=== PATIENT | female | born 1990 | race Caucasian/White ===

== ENCOUNTER 2017-03-03 12:22 | Emergency (ER) | payer MEDICAID ==
[~2017-03-03] VITALS: Ht 157.5 cm; Wt 79.0 kg
[2017-03-03 12:29] VITALS: Ht 157.5 cm; Wt 79.0 kg
[2017-03-03] MEDS ORDERED: ACETAMINOPHEN 500 MG TAB PO STA (13:47)
[2017-03-03 14:11] LABS: ADD UMIC YES; UR ASCORBIC ACID NEGATIVE (NEGATIVE); UR BILIRUBIN (Dip) NEGATIVE (NEGATIVE); UR BLOOD (Dip) 2+ mg/dL (NEGATIVE); UR CLARITY CLEAR (CLEAR); UR COLOR STRAW (YELLOW); UR GLUCOSE (Dip) NEGATIVE (NEGATIVE); UR KETONES (Dip) NEGATIVE (NEGATIVE); UR LEUKOCYTE ESTERASE (Dip) TRACE Leu/ul (NEGATIVE); UR NITRITE (Dip) NEGATIVE (NEGATIVE); UR RBC 1 /HPF (0-5); UR SPECIFIC GRAVITY (Dip) 1.002 (1.003-1.030); UR TOTAL PROTEIN (Dip) NEGATIVE (NEGATIVE); UR UROBILINOGEN (Dip) NEGATIVE (NEGATIVE)
--- NOTE | 2017-03-03 14:22 | RADRPT ---
PROCEDURE: OB Ultrasound. CLINICAL INDICATION: Positive test. Vaginal bleeding for 1 week. TECHNIQUE: Ultrasound of the pelvis was performed with transabdominal and transvaginal sonography in the axial and sagittal planes. COMPARISON: No prior study is available for comparison. FINDINGS: There is a single intrauterine gestational sac. pole and yolk sac are not visualized. Mean sac diameter is 0.22 cm. Menstrual age by ultrasound dates is 4 weeks 5 days. This indicates an expected date of delivery of 11/05/2017. The right ovary appears normal measuring 3.3 x 2.9 x 3.7 cm. The left ovary appears normal measuring 4.2 x 3.0 x 3.5 cm. Color Doppler and pulsed Doppler sonography demonstrate normal flow to the ovaries. There is no other pelvic mass or free fluid. IMPRESSION: 1. Single small intrauterine gestational sac measuring 0.22 cm. It is too early to visualize pole or yolk sac. Follow-up ultrasound in 14 days is advised. 2. Otherwise unremarkable study. RPTAT: QQ .Colby Lechuga MD, Date Time Electronically viewed and signed by .Colby Lechuga MD, on 03/03/2017 14:22 .R/
[2017-03-03 14:39] LABS: ADD SCAN DIFF NO
--- NOTE | 2017-03-03 14:46 | ERD ---
ER Documentation Chief Complaint Date/Time DATE: 03/03/17 TIME: 14:45 Chief Complaint 4 WEEKS WITH BLEEDING SINCE YESTERDAY HPI This is a 26-year-old female who presents to the emergency department today complaining of lower abdominal cramping and back pain for the past couple of days. She states that she took a test on Saturday that was positive. States that she started having some bleeding and spotting couple of days ago. She has not taken any medication for the pain. She does not have an [facility] clinic. States her last menstrual period was February 05. States she has some mild dysuria. Denies any nausea vomiting, fevers or chills ROS All systems reviewed and are negative except as per history of present illness. Medications Home Meds Active Scripts Nitrofurantoin Monohyd Macrocr* (Macrobid*) 100 Mg Capsr, 100 MG PO BID for 7 Days, CAP Prov:ALLAN VELAZQUEZ PA-C 03/03/17 Acetaminophen* (Tylophen*) 500 Mg Capsule, 1 CAP PO Q6H Y for PAIN AND OR ELEVATED TEMP, #30 CAP Prov:ALLAN VELAZQUEZ PA-C 03/03/17 Allergies Allergies: Coded Allergies: No Known Drug Allergy (Verified Allergy, Unknown, 12/14/09) PMhx/Soc History of Surgery: No Anesthesia Reaction: No Hx Neurological Disorder: No Hx Respiratory Disorders: No Hx Cardiac Disorders: No Hx Psychiatric Problems: No Hx Miscellaneous Medical Probl: No Hx Alcohol Use: No Hx Substance Use: No Hx Tobacco Use: No Smoking Status: Never smoker Physical Exam Vitals Vital Signs Date Time Temp Pulse Resp B/P Pulse Ox O2 Delivery O2 Flow Rate FiO2 03/03/17 16:22 94 16 124/80 03/03/17 12:29 98.1 110 18 133/82 99 Physical Exam Const: No acute distress Head: Atraumatic Eyes: Normal Conjunctiva ENT: Normal External Ears, Nose and Mouth. Neck: Full range of motion..~ No meningismus. Resp: Clear to auscultation bilaterally Cardio: Regular rate and rhythm, no murmurs Abd: Soft, suprapubic tenderness non distended. Normal bowel sounds. No right lower quadrant pain. No tenderness McBurney's. Skin: No petechiae or rashes Back: No midline tenderness. Bilateral paraspinal tenderness. No CVA tenderness. Ext: No cyanosis, or edema Neur: Awake and alert Psych: Normal Mood and Affect Result Diagram: 03/03/17 1418 Results 24 hrs Laboratory Tests Test 03/03/17 13:00 03/03/17 14:18 Urine Color STRAW Urine Clarity CLEAR Urine pH 7.0 Urine Specific [place] 1.002 Urine Ketones NEGATIVEmg/dL Urine Nitrite NEGATIVEmg/dL Urine Bilirubin NEGATIVEmg/dL Urine Urobilinogen NEGATIVEmg/dL Urine Leukocyte Esterase TRACELeu/ul Urine Microscopic RBC 1/HPF Urine Microscopic WBC 0/HPF Urine Hemoglobin 2+mg/dL Urine Glucose NEGATIVEmg/dL Urine Total Protein NEGATIVEmg/dl White Blood Count 8.810^3/ul Red Blood Count 4.5610^6/ul Hemoglobin 14.4g/dl Hematocrit 41.7% Mean Corpuscular Volume 91.4fl Mean Corpuscular Hemoglobin 31.6pg Mean Corpuscular Hemoglobin Concent 34.5g/dl Red Cell Distribution Width 12.6% Platelet Count 55421^3/UL Mean Platelet Volume 9.2fl Neutrophils % 69.6% Lymphocytes % 23.3% Monocytes % 6.1% Eosinophils % 0.5% Basophils % 0.3% Nucleated Red Blood Cells % 0.0/100WBC Neutrophils # 6.110^3/ul Lymphocytes # 2.110^3/ul Monocytes # 0.510^3/ul Eosinophils # 0.010^3/ul Basophils # 0.010^3/ul Nucleated Red Blood Cells # 0.010^3/ul Beta HCG, Quantitative 1706.2mIU/ml Current Medications Medications (Trade) Dose Ordered Sig/Gunner Route PRN Reason Start Time Stop Time Status Last Admin Dose Admin Acetaminophen (Tylenol Tab) 500 mg ONCE STAT PO 03/03/17 13:47 03/03/17 13:48 DC 03/03/17 13:53 DIAGNOSTIC IMAGING REPORT Patient: DEMETRIO DIAS : 1990 Age: 26 Sex: F MR #: [id number] DOS: 03/03/17 1347 Ordering MD: ALLAN VELAZQUEZ PA-C Location: [facility] Room/Bed: PROCEDURE: OB Ultrasound. CLINICAL INDICATION: Positive test. Vaginal bleeding for 1 week. TECHNIQUE: Ultrasound of the pelvis was performed with transabdominal and transvaginal sonography in the axial and sagittal planes. COMPARISON: No prior study is available for comparison. FINDINGS: There is a single intrauterine gestational sac. pole and yolk sac are not visualized. Mean sac diameter is 0.22 cm. Menstrual age by ultrasound dates is 4 weeks 5 days. This indicates an expected date of delivery of 11/05/2017. The right ovary appears normal measuring 3.3 x 2.9 x 3.7 cm. The left ovary appears normal measuring 4.2 x 3.0 x 3.5 cm. Color Doppler and pulsed Doppler sonography demonstrate normal flow to the ovaries. There is no other pelvic mass or free fluid. IMPRESSION: 1. Single small intrauterine gestational sac measuring 0.22 cm. It is too early to visualize pole or yolk sac. Follow-up ultrasound in 14 days is advised. 2. Otherwise unremarkable study. RPTAT: QQ .Colby Lechuga MD, MD Date Time Electronically viewed and signed by .Colby Lechuga MD, on 03/03/2017 14:22 .R/ CC: ALLAN VELAZQUEZ PA-C Procedures/[facility] This is a 26-year-old female who presents to the emergency department today complaining of vaginal bleeding for the past couple of days. Patient states she is approximately 3-4 weeks . Given this I did obtain a complete OB workup. Laboratory work shows no elevated white blood cell count. She is not anemic. Platelets are within normal limits. UA shows trace leukocyte esterase Beta quant hCG 1706.2 Rh status 0+ Ultrasound shows a single small intrauterine gestational sac measuring 0.22 cm. Is too early to visualize pole or yolk sac. A follow-up ultrasound in 14 days was recommended. There is no other pelvic mass or free fluid. There is an estimated delivery date of 11/05/2017. There is normal flow to both ovaries. Patient symptoms at this time is consistent with vaginal bleeding in early . Other differentials to consider early normal versus early failed versus placenta previa versus subchorionic hemorrhage. Given patient had complaints of dysuria and her trace leukocyte Estrace and will treat her with Macrobid for possible urinary tract infection. Patient given Tylenol here in the emergency department. She will be given a prescription for home. Patient is afebrile and otherwise well-appearing. I have low suspicion for ectopic , tubo ovarian abscess, ovarian torsion. I have explained the results to the patient. I have explained that the may continue to have vaginal bleeding peer. I have explained to the patient that they need to follow-up in 48 hours for a repeat beta quant. At this time the patient is stable for discharge and outpatient management. Patient should follow up with their PCP in the next 1-2 days. They may return to the emergency department sooner for any persistent or worsening of symptoms. Patient understood and agreed with the plan. Departure Diagnosis: Primary Impression: Vaginal bleeding in patient at less than 20 weeks gestation Condition: ALLAN Tipton PA-C Mar 03, 2017 14:46
[2017-03-03 14:57] LABS: BASOPHILS % 0.3 % (0.0-2.0); EOSINOPHILS % 0.5 % (0.0-7.0); HEMATOCRIT 41.7 % (37.0-47.0); HEMOGLOBIN 14.4 g/dl (12.0-16.0); LYMPHOCYTES # 2.1 10^3/ul (0.8-2.9); LYMPHOCYTES % 23.3 % (15.0-51.0); MEAN CORPUSCULAR HEMOGLOBIN 31.6 pg (29.0-33.0); MEAN CORPUSCULAR HGB CONC 34.5 g/dl (32.0-37.0); MEAN CORPUSCULAR VOLUME 91.4 fl (82.0-101.0); MEAN PLATELET VOLUME 9.2 fl (7.4-10.4); MONOCYTE # 0.5 10^3/ul (0.3-0.9); MONOCYTES % 6.1 % (0.0-11.0); NEUTROPHIL # 6.1 10^3/ul (1.6-7.5); NEUTROPHILS % 69.6 % (39.0-77.0); PLATELET COUNT 347 10^3/UL (140-415); RED BLOOD COUNT 4.56 10^6/ul (4.20-5.40); RED CELL DISTRIBUTION WIDTH 12.6 % (11.5-14.5); WHITE BLOOD COUNT 8.8 10^3/ul (4.8-10.8)
[2017-03-03] MEDS ORDERED: ACET500C5 PO (16:14)
[2017-03-03] MEDS ORDERED: NITR-58 PO (16:14)
[2017-03-03 16:22] VITALS: BP 124/80; PULSE 94; RESP 16
== END 2017-03-03 16:23 | disposition home or self-care (01) ==
LOC: FTE 12:22
DX: O20.9 Hemorrhage in early pregnancy, unspecified (principal); Z3A.01 Less than 8 weeks gestation of pregnancy
CPT/HCPCS: 36415; 76801; 76817; 81001; 84702; 85025; 86900; 86901; Z7502; Z7610

== ENCOUNTER 2017-03-05 14:13 | Emergency (ER) | payer MEDICAID ==
[~2017-03-05] VITALS: Ht 152.4 cm; Wt 70.4 kg
[~2017-03-05 14:13] MED LIST: ACET500C5 PO; NITR-58 PO
[2017-03-05 14:15] VITALS: Ht 152.4 cm; Wt 70.4 kg
[2017-03-05 15:34] LABS: ADD SCAN DIFF NO
[2017-03-05 15:35] LABS: BASOPHILS % 0.3 % (0.0-2.0); EOSINOPHILS # 0.1 10^3/ul (0.0-0.5); EOSINOPHILS % 0.6 % (0.0-7.0); HEMATOCRIT 38.5 % (37.0-47.0); HEMOGLOBIN 13.6 g/dl (12.0-16.0); LYMPHOCYTES # 2.7 10^3/ul (0.8-2.9); LYMPHOCYTES % 28.6 % (15.0-51.0); MEAN CORPUSCULAR HEMOGLOBIN 32.2 pg (29.0-33.0); MEAN CORPUSCULAR HGB CONC 35.3 g/dl (32.0-37.0); MEAN PLATELET VOLUME 9.3 fl (7.4-10.4); MONOCYTE # 0.6 10^3/ul (0.3-0.9); MONOCYTES % 6.7 % (0.0-11.0); NEUTROPHIL # 6.1 10^3/ul (1.6-7.5); NEUTROPHILS % 63.4 % (39.0-77.0); PLATELET COUNT 323 10^3/UL (140-415); RED BLOOD COUNT 4.23 10^6/ul (4.20-5.40); RED CELL DISTRIBUTION WIDTH 12.6 % (11.5-14.5); WHITE BLOOD COUNT 9.6 10^3/ul (4.8-10.8)
--- NOTE | 2017-03-05 15:46 | ERD ---
ER Documentation Chief Complaint Date/Time DATE: 03/05/17 TIME: 15:44 Chief Complaint 4 weeks had vag bleeding beta quat HPI 26 yo female comes in A0, comes in for a 2 day recheck with history of vaginal bleeding, rule out ectopic. She states that her last menstrual period was approximately on February 05, 2017 and she had some vaginal bleeding for the past 2 days with cramping pain time she states she has reduced to only spotting , however slight amount of pain that is cramping in the back. She denies abdominal pain or pelvic pain. She has been taking the Macrobid as well as Tylenol. She denies any dizziness, chest pain, shortness breath fevers or chills. ROS All systems reviewed and are negative except as per history of present illness. Medications Home Meds Active Scripts Nitrofurantoin Monohyd Macrocr* (Macrobid*) 100 Mg Capsr, 100 MG PO BID for 7 Days, CAP Prov:ALLAN VELAZQUEZ PA-C 03/03/17 Acetaminophen* (Tylophen*) 500 Mg Capsule, 1 CAP PO Q6H Y for PAIN AND OR ELEVATED TEMP, #30 CAP Prov:ALLAN VELAZQUEZ PA-C 03/03/17 Allergies Allergies: Coded Allergies: No Known Drug Allergy (Verified Allergy, Unknown, 03/05/17) PMhx/Soc History of Surgery: No Anesthesia Reaction: No Hx Neurological Disorder: No Hx Respiratory Disorders: No Hx Cardiac Disorders: No Hx Psychiatric Problems: No Hx Miscellaneous Medical Probl: No Hx Alcohol Use: No Hx Substance Use: No Hx Tobacco Use: No Smoking Status: Never smoker Physical Exam Vitals Vital Signs Date Time Temp Pulse Resp B/P Pulse Ox O2 Delivery O2 Flow Rate FiO2 03/05/17 14:15 99.4 98 18 110/74 98 Physical Exam General: Well-developed, well-nourished. The patient appears in no acute distress. HEENT: Head is normocephalic, atraumatic. No scleral icterus. Neck: Supple. Nontender. Lungs: Clear to auscultation. Normal air movement. Heart: Regular rate and rhythm. S1 and S2 are normal. No murmurs, gallops, or rubs. Abdomen: Soft, nontender, nondistended. Bowel sounds are normoactive. : slight bleeding noted in the vault, no CMT tenderness Extremities: No clubbing or cyanosis. Normal pulses. Moving extremities x 4. No weakness. Neurologic: Alert and oriented 3. No focal deficits. Skin: Normal turgor. No rash or lesions. Result Diagram: 03/05/17 1515 Results 24 hrs Laboratory Tests Test 03/05/17 15:15 03/05/17 16:08 White Blood Count 9.610^3/ul Red Blood Count 4.2310^6/ul Hemoglobin 13.6g/dl Hematocrit 38.5% Mean Corpuscular Volume 91.0fl Mean Corpuscular Hemoglobin 32.2pg Mean Corpuscular Hemoglobin Concent 35.3g/dl Red Cell Distribution Width 12.6% Platelet Count 34423^3/UL Mean Platelet Volume 9.3fl Neutrophils % 63.4% Lymphocytes % 28.6% Monocytes % 6.7% Eosinophils % 0.6% Basophils % 0.3% Nucleated Red Blood Cells % 0.0/100WBC Neutrophils # 6.110^3/ul Lymphocytes # 2.710^3/ul Monocytes # 0.610^3/ul Eosinophils # 0.110^3/ul Basophils # 0.010^3/ul Nucleated Red Blood Cells # 0.010^3/ul Beta HCG, Quantitative 3122.5mIU/ml Urine Color YELLOW Urine Clarity CLEAR Urine pH 6.0 Urine Specific [place] 1.011 Urine Ketones 2+mg/dL Urine Nitrite NEGATIVEmg/dL Urine Bilirubin NEGATIVEmg/dL Urine Urobilinogen NEGATIVEmg/dL Urine Leukocyte Esterase NEGATIVELeu/ul Urine Microscopic RBC 6/HPF Urine Microscopic WBC 1/HPF Urine Hemoglobin 2+mg/dL Urine Glucose NEGATIVEmg/dL Urine Total Protein NEGATIVEmg/dl DIAGNOSTIC IMAGING REPORT Patient: DEMETRIO DIAS : 1990 Age: 26 Sex: F MR #: [id number] DOS: 03/05/17 1450 Ordering MD: KINA BARRIOS PA-C Location: [facility] Room/Bed: PROCEDURE: OBSTETRICAL ULTRASOUND WITH ENDOVAGINAL IMAGES CLINICAL INDICATION: 2 day recheck, vaginal bleeding TECHNIQUE: Multiple sonographic images of the pelvis were obtained utilizing a transabdominal and endovaginal technique. The images were reviewed on a PACS workstation. COMPARISON: Obstetrical ultrasound from 03/03/2017 LMP: 02/05/2017 Gestational age by LMP: 4 weeks, 0 days FINDINGS: The uterus measures 8.5 x 4.4 x 5.7 cm. A possible intrauterine gestational sac is identified with mean sac diameter of 0.38 cm which would be consistent with a gestational age of 5 weeks, 0 days and an estimated date of delivery of 11/05/2017 . No yolk sac or pole is identified within it. A hypoechoic lesion is identified adjacent to the gestational sac measuring 1.1 x 0.6 cm consistent with a subchorionic hemorrhage. The right ovary measures 4.30 x 1.8 x 2.1 cm. The left ovary measures 4.3 x 2.6 x 3.2 cm. There is normal vascular flow in both ovaries. There is a 2.1 cm complex cystic lesion with low level internal echoes in the left ovary which may be a hemorrhagic/corpus luteal cyst. No significant pelvic free fluid is identified. IMPRESSION: A possible intrauterine gestational sac is identified which would be consistent with a gestational age of 5 weeks, 0 days . There has been interval growth since the prior ultrasound study from 03/03/2017 where it had a mean sac diameter up to 0.22 cm. No yolk sac or pole is identified within it. Findings may be due to an early intrauterine although an ectopic is not excluded. Short-term follow-up ultrasound and serial Beta HCG measurements are recommended for further evaluation. 2.1 cm complex cystic lesion in the left ovary may be a hemorrhagic/corpus luteal cyst. Attention on follow-up is recommended. RPTAT: EE Physician Jake Date Time Electronically viewed and signed by Physician Jake on 03/05/2017 15:47 RA/ Procedures/[facility] ED course: EMR is reviewed, ultrasound was previously done showed a possible gestational sac that was intrauterine, likely too early however no adnexal masses. Medical decision making: This is a 26-year-old female comes in with vaginal bleeding, presents with a what appears to be a growing possible gestational sac that is intrauterine, rule ectopic, adnexal masses, ovarian abscess, pyelonephritis, ovarian torsion. Pelvic ultrasound does not show evidence of adnexal masses. This was discussed with the procedures tech on-call, Dr Steiner, who advised that the patient is stable for discharge to recheck in 2 days. Beta quantitative hCG has increased approximately by 2, so may consider early field , versus early intrauterine , cannot rule out ectopic at this time. Subchorionic hemorrhage was noted on ultrasound today, previous visit shows that patient is O+, no indication for RhoGam. Departure Diagnosis: Primary Impression: Vaginal bleeding Condition: KINA Shaffer PA-C Mar 05, 2017 15:46
--- NOTE | 2017-03-05 15:47 | RADRPT ---
PROCEDURE: OBSTETRICAL ULTRASOUND WITH ENDOVAGINAL IMAGES CLINICAL INDICATION: 2 day recheck, vaginal bleeding TECHNIQUE: Multiple sonographic images of the pelvis were obtained utilizing a transabdominal and endovaginal technique. The images were reviewed on a PACS workstation. COMPARISON: Obstetrical ultrasound from 03/03/2017 LMP: 02/05/2017 Gestational age by LMP: 4 weeks, 0 days FINDINGS: The uterus measures 8.5 x 4.4 x 5.7 cm. A possible intrauterine gestational sac is identified with mean sac diameter of 0.38 cm which would be consistent with a gestational age of 5 weeks, 0 days and an estimated date of delivery of 018 . No yolk sac or pole is identified within it. A hypoechoic lesion is identified adjacent to the gestational sac measuring 1.1 x 0.6 cm consistent with a subchorionic hemorrhage. The right ovary measures 4.30 x 1.8 x 2.1 cm. The left ovary measures 4.3 x 2.6 x 3.2 cm. There is n ormal vascular flow in both ovaries. There is a 2.1 cm complex cystic lesion with low level internal echoes in the left ovary which may b e a hemorrhagic/corpus luteal cyst. No significant pelvic free fluid is identified. IMPRESSION: A possible intrauterine gestational sac is identified which would be consistent with a gestational a ge of 5 weeks, 0 days . There has been interval growth since the prior ultrasound study from 017 where it had a mean sac diameter up to 0.22 cm. No yolk sac or pole is identified within it. Findings may be due to an early intrauterine although an ectopic is not exc luded. Short-term follow-up ultrasound and serial Beta HCG measurements are recommended for further evaluation. 2.1 cm complex cystic lesion in the left ovary may be a hemorrhagic/corpus luteal cyst. Attention o n follow-up is recommended. RPTAT: EE Physician Jake Date Time Electronically viewed and signed by Alejandro Pina Physician on 03/05/2017 15:47 RA/
[2017-03-05 16:32] LABS: ADD UMIC YES; UR ASCORBIC ACID NEGATIVE (NEGATIVE); UR BILIRUBIN (Dip) NEGATIVE (NEGATIVE); UR BLOOD (Dip) 2+ mg/dL (NEGATIVE); UR CLARITY CLEAR (CLEAR); UR COLOR YELLOW (YELLOW); UR GLUCOSE (Dip) NEGATIVE (NEGATIVE); UR KETONES (Dip) 2+ mg/dL (NEGATIVE); UR LEUKOCYTE ESTERASE (Dip) NEGATIVE Leu/ul (NEGATIVE); UR NITRITE (Dip) NEGATIVE (NEGATIVE); UR RBC 6 /HPF (0-5); UR SPECIFIC GRAVITY (Dip) 1.011 (1.003-1.030); UR TOTAL PROTEIN (Dip) NEGATIVE (NEGATIVE); UR UROBILINOGEN (Dip) NEGATIVE (NEGATIVE)
== END 2017-03-05 16:52 | disposition home or self-care (01) ==
LOC: FTE 14:13
DX: O20.9 Hemorrhage in early pregnancy, unspecified (principal); Z3A.01 Less than 8 weeks gestation of pregnancy
CPT/HCPCS: 36415; 76801; 76817; 81001; 84702; 85025

== ENCOUNTER 2017-03-31 10:20 | Emergency (ER) | payer MEDICAID ==
[~2017-03-31] VITALS: Ht 160 cm; Wt 71.3 kg
[2017-03-31 10:23] VITALS: Ht 160 cm; Wt 71.3 kg
[2017-03-31] MEDS ORDERED: ONDANSETRON 4 MG INJ IV STA (10:42)
[2017-03-31] MEDS ORDERED: morphine 4 MG/ML VIAL IV STA (10:42)
[2017-03-31] MEDS ORDERED: SOD CHLORIDE 0.9% 1,000 ML IV ONE (11:00)
[2017-03-31 11:17] LABS: BASOPHILS % 0.4 % (0.0-2.0); EOSINOPHILS % 0.5 % (0.0-7.0); HEMATOCRIT 37.4 % (37.0-47.0); HEMOGLOBIN 12.9 g/dl (12.0-16.0); LYMPHOCYTES # 1.8 10^3/ul (0.8-2.9); MEAN CORPUSCULAR HEMOGLOBIN 31.7 pg (29.0-33.0); MEAN CORPUSCULAR HGB CONC 34.5 g/dl (32.0-37.0); MEAN CORPUSCULAR VOLUME 91.9 fl (82.0-101.0); MEAN PLATELET VOLUME 9.1 fl (7.4-10.4); MONOCYTE # 0.5 10^3/ul (0.3-0.9); NEUTROPHIL # 5.6 10^3/ul (1.6-7.5); NEUTROPHILS % 69.8 % (39.0-77.0); PLATELET COUNT 319 10^3/UL (140-415); RED BLOOD COUNT 4.07 10^6/ul (4.20-5.40); RED CELL DISTRIBUTION WIDTH 12.6 % (11.5-14.5)
--- NOTE | 2017-03-31 11:53 | RADRPT ---
PROCEDURE: US Pelvis. CLINICAL INDICATION: Vaginal bleeding. The C 5 days ago for retained products of conception. TECHNIQUE: The pelvis was evaluated with transabdominal and transvaginal sonography in the axial a nd sagittal planes. COMPARISON: 03/05/2017. FINDINGS: Uterus: 9.1 x 5.2 x 7.1 cm. Endometrium: 18.9 mm. The endometrium is heterogeneous. Right ovary: 2.8 x 1.5 x 1.7 cm. Left ovary: 4.1 x 2.1 x 2.1 cm. Uterine masses: None. Ovarian masses: None. Color Doppler and pulsed Doppler sonography demonstrate normal flow to the ova teagan. Other pelvic masses: None. Free fluid: None. IMPRESSION: 1. Heterogeneous endometrium. Nonspecific. 2. Otherwise normal pelvic ultrasound. RPTAT: QQ .Colby Lechuga MD, MD Date Time Electronically viewed and signed by .Colby Lehcuga MD, MD on 03/31/2017 11:53 .R/
--- NOTE | 2017-03-31 12:05 | ERD ---
ER Documentation Chief Complaint Date/Time DATE: 03/31/17 TIME: 12:04 Chief Complaint pelvic pain x 4 days DNC X4 days ago HPI This is a 26-year-old female who presents the emergency department today complaining of vaginal bleeding and pelvic pain for the past 5 days. States she had a DNC on 5 days ago because the "sac was empty". States that a couple of days ago she started with heavy vaginal bleeding like it was her period and when she went to the bathroom this morning she had pain with urination and again had a large passage of blood. Denies any fevers or chills, nausea or vomiting states she is taking ibuprofen for the pain ROS All systems reviewed and are negative except as per history of present illness. Medications Home Meds Active Scripts Nitrofurantoin Monohyd Macrocr* (Macrobid*) 100 Mg Capsr, 100 MG PO BID for 7 Days, CAP Prov:ALLAN VELAZQUEZ-C 03/31/17 Naproxen* (Naprosyn*) 500 Mg Tablet, 500 MG PO BID Y for PAIN AND/OR INFLAMMATION, #30 TAB Prov:PROALLAN DAWN-C 03/31/17 Hydrocodone/Acetaminophen ([place] 5-325 Tablet) 1 Each Tablet, 1 TAB PO Q6H Y for PAIN, #12 TAB Prov:ALLAN VELAZQUEZ-C 03/31/17 Nitrofurantoin Monohyd Macrocr* (Macrobid*) 100 Mg Capsr, 100 MG PO BID for 7 Days, CAP Prov:ALLAN VELAZQUEZ-C 03/03/17 Acetaminophen* (Tylophen*) 500 Mg Capsule, 1 CAP PO Q6H Y for PAIN AND OR ELEVATED TEMP, #30 CAP Prov:PROALLAN DAWN-C 03/03/17 Allergies Allergies: Coded Allergies: No Known Drug Allergy (Verified Allergy, Unknown, 03/31/17) PMhx/Soc History of Surgery: No Anesthesia Reaction: No Hx Neurological Disorder: No Hx Respiratory Disorders: No Hx Cardiac Disorders: No Hx Psychiatric Problems: No Hx Miscellaneous Medical Probl: No Hx Alcohol Use: No Hx Substance Use: No Hx Tobacco Use: No Smoking Status: Never smoker Physical Exam Vitals Vital Signs Date Time Temp Pulse Resp B/P Pulse Ox O2 Delivery O2 Flow Rate FiO2 7/23/17 15:12 98.3 78 20 115/61 100 Room Air 03/31/17 10:23 98.2 111 18 136/78 100 Physical Exam Const: Mild distress, sitting in wheelchair Head: Atraumatic Eyes: Normal Conjunctiva ENT: Normal External Ears, Nose and Mouth. Neck: Full range of motion..~ No meningismus. Resp: Clear to auscultation bilaterally Cardio: Regular rate and rhythm, no murmurs Abd: Soft, pelvic tenderness non distended. Normal bowel sounds : Pelvic exam shows active vaginal bleeding. No evidence of hemorrhage. No cervical motion tenderness. No evidence of vaginal discharge Skin: No petechiae or rashes Back: No midline or flank tenderness Ext: No cyanosis, or edema Neur: Awake and alert Psych: Normal Mood and Affect Result Diagram: 03/31/17 1100 Results 24 hrs Laboratory Tests Test 03/31/17 11:00 White Blood Count 8.010^3/ul Red Blood Count 4.0710^6/ul Hemoglobin 12.9g/dl Hematocrit 37.4% Mean Corpuscular Volume 91.9fl Mean Corpuscular Hemoglobin 31.7pg Mean Corpuscular Hemoglobin Concent 34.5g/dl Red Cell Distribution Width 12.6% Platelet Count 37643^3/UL Mean Platelet Volume 9.1fl Neutrophils % 69.8% Lymphocytes % 23.0% Monocytes % 6.0% Eosinophils % 0.5% Basophils % 0.4% Nucleated Red Blood Cells % 0.0/100WBC Neutrophils # 5.610^3/ul Lymphocytes # 1.810^3/ul Monocytes # 0.510^3/ul Eosinophils # 0.010^3/ul Basophils # 0.010^3/ul Nucleated Red Blood Cells # 0.010^3/ul Urine Color RED Urine Clarity CLEAR Urine pH 8.0 Urine Specific [place] 1.003 Urine Ketones NEGATIVEmg/dL Urine Nitrite NEGATIVEmg/dL Urine Bilirubin NEGATIVEmg/dL Urine Urobilinogen NEGATIVEmg/dL Urine Leukocyte Esterase 2+Olivia/ul Urine Microscopic RBC 15/HPF Urine Microscopic WBC 11/HPF Urine Squamous Epithelial Cells MODERATE/HPF Urine Amorphous Crystals FEW/HPF Urine Bacteria FEW/HPF Urine Yeast (Budding) FEW/HPF Urine Hemoglobin 3+mg/dL Urine Glucose NEGATIVEmg/dL Urine Total Protein 1+mg/dl Beta HCG, Quantitative 5998.6mIU/ml Current Medications Medications (Trade) Dose Ordered Sig/Gunner Route PRN Reason Start Time Stop Time Status Last Admin Dose Admin Morphine Sulfate 4 mg 4 mg ONCE STAT IV 03/31/17 10:42 03/31/17 10:46 DC 03/31/17 10:53 Sodium Chloride (NS) 1,000 ml @ 1,000 mls/hr Q1H ONCE IV 03/31/17 11:00 03/31/17 11:59 DC 03/31/17 10:54 Ondansetron HCl (Zofran Inj) 4 mg ONCE STAT IV 03/31/17 10:42 03/31/17 10:46 DC 03/31/17 10:53 Ketorolac Tromethamine (Toradol) 30 mg ONCE STAT IV 03/31/17 14:06 03/31/17 14:07 DC 03/31/17 14:20 DIAGNOSTIC IMAGING REPORT Patient: DEMETRIO DIAS : 1990 Age: 26 Sex: F MR #: [id number] DOS: 03/31/17 0000 Ordering MD: ALLAN VELAZQUEZ PA-C Location: [facility] Room/Bed: PROCEDURE: US Pelvis. CLINICAL INDICATION: Vaginal bleeding. The C 5 days ago for retained products of conception. TECHNIQUE: The pelvis was evaluated with transabdominal and transvaginal sonography in the axial and sagittal planes. COMPARISON: 03/05/2017. FINDINGS: Uterus: 9.1 x 5.2 x 7.1 cm. Endometrium: 18.9 mm. The endometrium is heterogeneous. Right ovary: 2.8 x 1.5 x 1.7 cm. Left ovary: 4.1 x 2.1 x 2.1 cm. Uterine masses: None. Ovarian masses: None. Color Doppler and pulsed Doppler sonography demonstrate normal flow to the ovaries. Other pelvic masses: None. Free fluid: None. IMPRESSION: 1. Heterogeneous endometrium. Nonspecific. 2. Otherwise normal pelvic ultrasound. RPTAT: QQ .Colby Lechuga MD, MD Date Time Electronically viewed and signed by .Colby Lechuga MD, MD on 03/31/2017 11:53 .R/ CC: ALLAN VELAZQUEZ PA-C Procedures/MDM This is a 26-year-old female who presents to the emergency department today for vaginal bleeding and pelvic pain after D&C 5 days ago. Patient had a D&C done by Dr. Rohan Rutledge at [facility]. States she did not go back to the hospital because this wound was "closer". Patient had been seen here 2 times for pelvic pain and vaginal bleeding and likely early failed . Patient did indicate that she ended up having a D&C because "the sac was empty" . On physical exam patient has pelvic pain. I did recheck her laboratory work Laboratory workup shows no elevated white blood cell count. She is not anemic. Platelets are within normal limits. Beta quant hCG 5998.6 UA shows 2+ leukocyte esterase. Negative nitrates. Positive white blood cells. Ultrasound shows heterogeneous endometrium. Nonspecific. There is normal flow to the ovaries. Otherwise normal pelvic ultrasound I did do a pelvic exam on the patient and patient was actively bleeding however there is no indication to suggest hemorrhage. I did place a call to Dr. Rutledge however he was not able to be reached today. I also placed a call to Dr. August, the laborist on-call here at the hospital. He recommended calling Dr. Thompson as Dr. Thompson is taking call for Dr. Gutierrez. Dr. Thompson was called twice with no response while the patient was here. Dr. August was called again and asked to see the patient of which she obliged. Patient's laboratory workup is normal. She is no elevated white blood cell count. She does have a urinary tract infection however I do not feel that this was causing her pelvic cramping. Dr. Erickson agreed to admit the patient for pain control however patient indicated that she would like to go home. There is no indication for transfusion at this time. Patient was given a prescription for [place], Naprosyn. She may follow-up with Dr. Rutledge in clinic tomorrow. Low suspicion for ectopic , tubal ovarian abscess or ovarian torsion. Low suspicion for acute surgical abdomen as patient has no other abdominal pain. At this time the patient is stable for discharge and outpatient management. Patient will be given a prescription for Macrobid as well for urinary tract infection. Patient should follow up with their PCP in the next 1-2 days. They may return to the emergency department sooner for any persistent or worsening of symptoms. Patient understood and agreed with the plan. Discussed the patient with Dr. Alicia and he is in agreement with the plan. Of note Dr. Thompson called the emergency department after the patient had already been discharged. She was notified of the patient and the plan Departure Diagnosis: Primary Impression: Acute pain in female pelvis Additional Impression: Vaginal bleeding Condition: ALLAN Tipton PA-C Mar 31, 2017 12:05
[2017-03-31 12:23] LABS: UR AMORPHOUS CRYSTAL FEW /HPF (NONE SEEN); UR BACTERIA FEW /HPF (NONE SEEN); UR RBC 15 /HPF (0-5); UR SQUAMOUS EPITHELIAL CELL MODERATE /HPF (FEW)
[2017-03-31 12:44] LABS: ADD UMIC YES; UR ASCORBIC ACID NEGATIVE (NEGATIVE); UR BILIRUBIN (Dip) NEGATIVE (NEGATIVE); UR BLOOD (Dip) 3+ mg/dL (NEGATIVE); UR BUDDING YEAST FEW /HPF (NONE SEEN); UR CLARITY CLEAR (CLEAR); UR COLOR RED (YELLOW); UR GLUCOSE (Dip) NEGATIVE (NEGATIVE); UR KETONES (Dip) NEGATIVE (NEGATIVE); UR LEUKOCYTE ESTERASE (Dip) 2+ Leu/ul (NEGATIVE); UR NITRITE (Dip) NEGATIVE (NEGATIVE); UR SPECIFIC GRAVITY (Dip) 1.003 (1.003-1.030); UR TOTAL PROTEIN (Dip) 1+ mg/dl (NEGATIVE); UR UROBILINOGEN (Dip) NEGATIVE (NEGATIVE)
[2017-03-31] MEDS ORDERED: KETOROLAC 30 MG INJ IV STA (14:06)
[2017-03-31] MEDS ORDERED: HYDR-906 PO (15:02)
[2017-03-31] MEDS ORDERED: NAPR-260 PO (15:03)
[2017-03-31] MEDS ORDERED: NITR-58 PO (15:04)
--- NOTE | 2017-03-31 15:09 | QN ---
Documentation Comment sp dc 5 days ago and c/o of some cramping vss exam wnl os closed and minimlal bleeding cbc and us wnl a/p pod 5 dc home fu with ob maria t er precautions given RORO GARCIA MD Mar 31, 2017 15:09
[2017-03-31 15:12] VITALS: BP 115/61; PULSE 78; RESP 20; TEMP 98.3
== END 2017-03-31 15:15 | disposition home or self-care (01) ==
LOC: FTE 10:20
DX: R10.2 Pelvic and perineal pain (principal); N93.9 Abnormal uterine and vaginal bleeding, unspecified
CPT/HCPCS: 76830; 76856; 81001; 84702; 85025; 96374; 96375; J1885; J2270; J2405; J7030; Z7502

== ENCOUNTER 2017-09-10 18:07 | Emergency (ER) | END 2017-09-10 19:08 | disposition home or self-care (01) ==